=== PATIENT | male | born 1975 | race Caucasian/White ===

== ENCOUNTER 2016-03-06 14:14 | Emergency (ER) | payer SELFPAY ==
[2016-03-06 14:53] VITALS: BP 124/78; PULSE 88; TEMP 98.3; BMI 30.5
--- NOTE | 2016-03-06 14:53 | EDPRACDOC ---
- General Stated Complaint: FELL LT RIB PAIN Time Seen by Provider: 03/06/16 14:51 Information Source: Patient - History of Present Illness Onset: yesterday HPI: Pt states he tripped and fell onto post yesterday. C/o L rib pain with sob. Denies LOC, vision changes, n/v, neck o back pain, abd pain, loss of control bowel or bladder, bruising. Pain Severity: Reports: Moderate Injuries/Pain Location: Reports: chest Reason for Fall: Reports: tripped Loss of Consciousness: no loss of consciousness Modifying Factors: improves with: movement, other (breathing) Associated Symptoms (Fall): Reports: chest pain, shortness of breath Allergies/Adverse Reactions: Allergies No Known Allergies Allergy (Verified 03/06/16 14:58) Home Medications: Ambulatory Orders Ibuprofen 800 mg PO TID PRN #30 tablet 03/06/16 Oxycodone HCl/Acetaminophen [Percocet 5-325 mg Tablet] 1 tab PO Q6H PRN #20 tab 03/06/16 ED Past Medical History - History Reviewed Yes Nurses notes reviewed and agree except as marked - Patient Medical History Psychological History: Denies: Depression Systemic History: Reports: Diabetes - Social Medical History Smoking Status: Never smoker ETOH: Social Substance Abuse: None EDM Review of Systems - Review of Systems Constitutional: No Symptoms Reported. negative: Fever, Chills, Weakness, Fatigue, Loss of Appetite Eyes: No Symptoms Reported. negative: Redness, Blurred Vision, Double Vision, Discharge, Pain, Light Sensitive, Photophobia Respiratory: No Symptoms Reported. negative: Cough, Brassy Cough, Barky Cough, Shortness of Breath, Wheezing, Hemoptysis Cardiovascular: No Symptoms Reported. negative: Chest Pain, Palpitations, Syncope, Edema, Orthopnea, PND, Skin Mottling, Cyanosis Gastrointestinal: No Symptoms Reported. negative: Pain, Constipation, Nausea, Vomiting, Diarrhea, Melena, Formula Intolerance Genitourinary: No Symptoms Reported. negative: Dysuria, Hematuria, Frequency, Discharge, Bleeding, Testicular Pain, Neurological: No Symptoms Reported. negative: Headache, Dizziness, Seizure, Numbness, Weakness, Speech Difficulty, Gait Difficulty Musculoskeletal: Ribs Integumentary: No Symptoms Reported. negative: Itching, Rash, Bruising, Wound Allergic/Immunologic: No Symptoms Reported. negative: Hives, Itching Hematologic: No Symptoms Reported. negative: Lymphadenopathy, Easy Bruising, Easy Bleeding Psychiatric: No Symptoms Reported. negative: Anxiety, Depression, Hallucinations, Insomnia, Suicidal - Physical Exam Constitutional: Alert Oriented to: Time, Person, Place Last recorded Vital Signs: Oxygen Pulse Oxygen Saturation O2 Device Oxygen Flow Rate Fraction of Inspired Oxygen ( FIO2) - HEENT Head: Normal ( normocephalic) Eye Exam: Normal (PERRL, EOMI, Sclera white) Neck: Normal (FROM, trachea at midline) - Respiratory/Cardiovascular Respiratory: Normal - CTA (BBS clear to auscultation without adventitious sounds ) Cardiovascular: Normal (RRR without murmur, gallop or rub) - GI Auscultation: Normal (NABS) Palpation: Normal (Soft,No rebound or guarding, non distended) Tenderness: Non tender, Other (no LUQ or RUQ tenderness) Guajardo's Sign: Negative - Musculoskeletal Back: Normal (Non-Tender) Extremities: Normal (Normal tone, Pulses 2+ No cyanosis or edema, FROM) - Integumentary Skin: Normal, Warm, Dry Lymphatics: Normal (no adenopathy) - Neurologic Memory Impaired: Normal Motor Function: Normal (Normal tone, Pulses 2+ No cyanosis or edema, FROM) Mood Description: Normal Perception: Normal ED Injury/Fall Exam - Physical Exam Head Injury: no evidence of injury Extremity Exam: no evidence of injury, normal range of motion, non-tender, no pedal edema Skin: Normal, Warm, Dry - Katharine Coma Score Best Eye Response ([place]arine): (4) open spontaneously Best Verbal Response ([place]): (5) oriented Best Motor Response ([place]): (6) obeys commands [place] Total: 15 - Differential Diagnosis Contusion, Fracture, Mechanical Fall, Sprain, Strain - Diagnostic Imaging Chest Image interpreted by: Radiologist IMPRESSION: No acute abnormality noted. Decision Time to Discharge: 15:15 - Departure Disposition: Home Condition: Good Final Diagnosis: Contusion of rib on left side Qualifiers: Encounter type: initial encounter Qualified Code(s): S20.212A - Contusion of left front wall of thorax, initial encounter Instructions: Rib Contusion (ED), Chest Wall Pain Education/Counseling Given To: Patient Education/Counseling Given Regarding: Diagnosis, Treatment, Follow Up Referrals: Isreal Bey MD [Primary Care Provider] - One Week Prescriptions: New Ibuprofen 800 mg PO TID PRN #30 tablet PRN Reason: Pain Oxycodone HCl/Acetaminophen [Percocet 5-325 mg Tablet] 1 tab PO Q6H PRN #20 tab PRN Reason: Pain Additional Instructions: Take deep breaths to prevent pneumonia. Return for worse or different symptoms.
--- NOTE | 2016-03-06 15:12 | DIRPT ---
CLINICAL DATA: Fall yesterday with left-sided chest pain, initial encounter EXAM: LEFT RIBS AND CHEST - 3+ VIEW COMPARISON: 09/29/2015 FINDINGS: Cardiac shadow is within normal limits. The lungs are well aerated. No effusion or pneumothorax is seen. No acute rib fracture is noted. IMPRESSION: No acute abnormality noted. Electronically Signed By: Prosper Cruz M.D. On: 03/06/2016 15:10
== END 2016-03-06 15:32 | disposition home or self-care (01) ==
LOC: EDMC 14:14
DX: S20.212A Contusion of left front wall of thorax, initial encounter (principal); W01.198A Fall on same level from slipping, tripping and stumbling with subsequent striking against other object, initial encounter; Y93.9 Activity, unspecified
CPT/HCPCS: 99282